=== PATIENT | male | born 1960 | race American Indian/Alaskan Native ===

== ENCOUNTER 2017-09-20 13:00 | Emergency (ER) | payer MEDICAID ==
[2017-09-20 13:37] VITALS: RESP 18; TEMP 98.2; O2SAT 98; BMI 30.2
--- NOTE | 2017-09-20 14:05 | ED PDOC ---
Arrival/HPI - General Chief Complaint: Male Genitourinary Time Seen by Provider: 09/20/17 13:32 Historian: Patient - History of Present Illness Narrative History of Present Illness (Text): 09/20/17 14:02 Franki Langston is a 57 year old male who presents to the emergency department complaining of rigth testicular pain for 2 days. Patient denies any fever or any other complaint at this time. no trauma, heavy lfiting. sexually active w/o proteciton 09/20/17 16:49 Time/Duration: < week Symptom Onset: Gradual Symptom Course: Unchanged Activities at Onset: Light Context: Home Past Medical History - Provider Review Nursing Documentation Reviewed: Yes - Cardiac Hx Cardiac Disorders: Yes Hx Hypertension: Yes - Psychiatric Hx Substance Use: No - Surgical History Hx Cholecystectomy: Yes Hx Coronary Artery Bypass Graft: Yes - Anesthesia Hx Anesthesia: Yes Hx Anesthesia Reactions: No Hx Malignant Hyperthermia: No Family/Social History - Physician Review Nursing Documentation Reviewed: Yes Family/Social History: No Known Family HX Smoking Status: n Hx Alcohol Use: No Hx Substance Use: No Allergies/Home Meds Allergies/Adverse Reactions: Allergies No Known Allergies Allergy (Verified 09/20/17 13:54) Home Medications: Home Meds Medication Instructions Recorded Confirmed Clopidogrel [Plavix] 75 mg PO DAILY 09/20/17 09/20/17 Metoprolol Succinate [Toprol XL] 25 mg PO DAILY 09/20/17 09/20/17 Simvastatin [Zocor] 40 mg PO DIN 09/20/17 09/20/17 Valsartan/Hydrochlorothiazide 1 tab PO DAILY 09/20/17 09/20/17 [Valsartan and Hydrochlorothiazide 25 mg-320 M] hydrALAZINE [hydralazine 25 mg PO DAILY 09/20/17 09/20/17 Hydrochloride] Review of Systems - Physician Review All systems were reviewed & negative as marked: Yes - Review of Systems Constitutional: absent: Fevers, Night Sweats Eyes: absent: Vision Changes ENT: absent: Hearing Changes Respiratory: absent: SOB Cardiovascular: absent: Chest Pain Gastrointestinal: absent: Abdominal Pain Genitourinary Male: Other (soreness to right-sided tip of penis) Musculoskeletal: absent: Arthralgias, Back Pain Skin: absent: Rash Neurological: absent: Headache Endocrine: absent: Diaphoresis Hemo/Lymphatic: absent: Adenopathy Psychiatric: absent: Anxiety, Depression Physical Exam Vital Signs Reviewed: Yes Vital Signs Temp Pulse Resp BP Pulse Ox 09/20/17 15:38 79 18 121/69 98 09/20/17 13:36 98.2 F 86 18 125/74 98 Temperature: Afebrile Blood Pressure: Normal Pulse: Regular Respiratory Rate: Normal Appearance: Positive for: Well-Appearing, Non-Toxic, Comfortable Pain Distress: None Mental Status: Positive for: Alert and Oriented X 3 - Systems Exam Head: Present: Atraumatic, Normocephalic Pupils: Present: PERRL Extroacular Muscles: Present: EOMI Conjunctiva: Present: Normal Mouth: Present: Moist Mucous Membranes Neck: Present: Normal Range of Motion Respiratory/Chest: Present: Clear to Auscultation, Good Air Exchange. No: Respiratory Distress, Accessory Muscle Use Cardiovascular: Present: Regular Rate and Rhythm, Normal S1, S2. No: Murmurs Abdomen: No: Tenderness, Distention, Peritoneal Signs Genitourinary Male: Present: Testicle Tenderness (Minimal right sided testicular tenderness) Back: Present: Normal Inspection Upper Extremity: Present: Normal Inspection. No: Cyanosis, Edema Lower Extremity: Present: Normal Inspection. No: Edema Neurological: Present: GCS=15, CN II-XII Intact, Speech Normal Skin: Present: Warm, Dry, Normal Color. No: Rashes Psychiatric: Present: Alert, Oriented x 3, Normal Insight, Normal Concentration Medical Decision Making ED Course and Treatment: 09/20/17 14:05 Impression: 57 year old male complaining of spontaneous soreness to right testicle for two days. Plan: -- Testes Ultrasound -- Urinalysis -- Labs -- Reassess and disposition Progress Notes: 09/20/17 15:13 Testicular Ultrasound: Creator : Farzad Garcia IMPRESSION: Negative study for epididymitis, orchitis or torsion. 09/20/17 16:50 - Lab Interpretations Lab Results: 09/20/17 15:00 09/20/17 15:00 Lab Results 09/20/17 15:00: Sodium 145, Potassium 3.6, Chloride 101, Carbon Dioxide 31, Anion Gap 17, BUN 15, Creatinine 1.6 H, Est GFR ( Amer) 54, Est GFR (Non- Af Amer) 45, Random Glucose 80, Calcium 9.6, Total Bilirubin 1.8 H, AST 52, ALT 43, Alkaline Phosphatase 48, Total Protein 7.9, Albumin 4.6, Globulin 3.2, Albumin/Globulin Ratio 1.4 09/20/17 15:00: PT 11.7, INR 1.03, APTT 32.7 09/20/17 15:00: WBC 7.0, RBC 5.07, Hgb 16.5, Hct 45.8, MCV 90.3, MCH 32.5, MCHC 36.0, RDW 13.7, Plt Count 196, MPV 10.1, Gran % 56.5, Lymph % (Auto) 34.0, Sawyer % (Auto) 6.9 H, Eos % (Auto) 2.3, Baso % (Auto) 0.3, Gran # 3.93, Lymph # (Auto ) 2.4, Sawyer # (Auto) 0.5, Eos # (Auto) 0.2, Baso # (Auto) 0.02 09/20/17 14:20: Urine Color Yellow, Urine Appearance Clear, Urine pH 6.0, Ur Specific [place] 1.010, Urine Protein Negative, Urine Glucose (UA) Negative, Urine Ketones Negative, Urine Blood Negative, Urine Nitrate Negative, Urine Bilirubin Negative, Urine Urobilinogen 0.2, Ur Leukocyte Esterase Negative I have reviewed the lab results: Yes - RAD Interpretation Radiology Orders: 09/20/17 14:02 TESTES DUPLEX COMPLETE [US] Stat - Medication Orders Current Medication Orders: Discontinued Medications Azithromycin (Zithromax) 1,000 mg PO STAT STA PRN Reason: Protocol Stop: 09/20/17 16:46 Ceftriaxone Sodium (Rocephin) 250 mg IM STAT STA PRN Reason: Protocol Stop: 09/20/17 16:46 - Scribe Statement The provider has reviewed the documentation as recorded by the Misti Mock Provider Scribe Attestation: All medical record entries made by the Gabbyibirma were at my direction and personally dictated by me. I have reviewed the chart and agree that the record accurately reflects my personal performance of the history, physical exam, medical decision making, and the department course for this patient. I have also personally directed, reviewed, and agree with the discharge instructions and disposition. Disposition/Present on Arrival - Present on Arrival Any Indicators Present on Arrival: No History of DVT/PE: No History of Uncontrolled Diabetes: No Urinary Catheter: No History of Decub. Ulcer: No History Surgical Site Infection Following: None - Disposition Have Diagnosis and Disposition been Completed?: Yes Diagnosis: Testicular pain Disposition: HOME/ ROUTINE Disposition Time: 16:51 Patient Problems: Current Active Problems Problem Status Onset Testicular pain Acute Condition: STABLE Discharge Instructions (ExitCare): Epididymitis, Screening for Sexually Transmitted Infections Additional Instructions: return to er with worsening symptoms or concerns. please follow up with your doctor. Referrals: David lBackburn MD [Primary Care Provider] - Follow up with primary Fadi Thapa MD [Staff Provider] - Follow up with primary Forms: [employer] (Icelandic)
[2017-09-20 14:34] LABS: URINE BILIRUBIN NEGATIVE (NEGATIVE); URINE BLOOD NEGATIVE (NEGATIVE); URINE GLUCOSE (UA) NEGATIVE (NEGATIVE); URINE LEUKOCYTE ESTERASE NEGATIVE Leu/uL (NEGATIVE); URINE PROTEIN NEGATIVE mg/dL (<30 mg/dL); URINE UROBILINOGEN 0.2 E.U./dL (<1 E.U./dL)
[2017-09-20 14:36] LABS: URINE APPEARANCE CLEAR (CLEAR); URINE COLOR YELLOW (YELLOW)
--- NOTE | 2017-09-20 15:11 | US ---
HISTORY: right testicular pain TECHNIQUE: Realtime sonography through the scrotum with color and doppler flow. COMPARISON: None Available. FINDINGS: RIGHT TESTICLE: Measures 1.7 x 2.6 x 3.5 cm. Normal echotexture and flow. RIGHT EPIDIDYMIS: Epididymal head measures 0.7 x 0.8 x 1.0 cm. Grossly unremarkable appearance with normal flow. LEFT TESTICLE: Measures 4.4 x 2.1 x 3.5 cm. Normal echotexture and flow. LEFT EPIDIDYMIS: Epididymal head measures 0.8 x 1.0 cm. Grossly unremarkable appearance with normal flow. HYDROCELE: Unilateral, uncomplicated in small left-sided hydrocele. VARICOCELE: None. OTHER FINDINGS: None. IMPRESSION: Negative study for epididymitis, orchitis or torsion.
[2017-09-20 15:36] LABS: BASO # 0.02 K/mm3 (0.0-2.0); BASO % 0.3 % (0.0-3.0); EOS # 0.2 (0.0-0.7); EOS % 2.3 % (1.5-5.0); GRAN # 3.93 (1.4-6.5); GRAN % 56.5 % (50.0-68.0); HEMOGLOBIN 16.5 g/dL (14.0-18.0); LYMPH # 2.4 (1.2-3.4); MEAN CELL VOLUME 90.3 fl (80.0-105.0); MEAN CORPUSCULAR HEMOGLOBIN 32.5 pg (25.0-35.0); MEAN PLATELET VOLUME 10.1 fl (7.0-11.0); MONO # 0.5 (0.1-0.6); MONO % 6.9 % (1.0-6.0); RBC 5.07 10^6/uL (3.5-6.1); RED CELL DISTRIBUTION WIDTH 13.7 % (11.5-14.5)
[2017-09-20 15:42] LABS: ALB/GLOB RATIO 1.4 (1.1-1.8); ALBUMIN 4.6 g/dL (3.0-4.8); CALCIUM 9.6 mg/dL (8.4-10.5)
[2017-09-20 15:46] LABS: INR 1.03 (0.93-1.08); PARTIAL THROMBOPLASTIN TIME 32.7 Seconds (25.1-36.5); PROTHROMBIN TIME 11.7 SECONDS (9.4-12.5)
[2017-09-20] MEDS ORDERED: cefTRIAXone (Rocephin) 250 mg Inj IM STA (16:45)
[2017-09-20 17:13] VITALS: BP 118/64; PULSE 75
== END 2017-09-20 17:30 | disposition home or self-care (01) ==
LOC: ED 13:00 → MERGE 13:00 → ED 17:30
DX: N50.811 Right testicular pain (principal)
CPT/HCPCS: 80053; 81003; 85025; 85610; 85730; 87491; 87591; 93975; 96372; 99283; J0696